=== PATIENT | female | born 1965 | race Caucasian/White ===

== ENCOUNTER 2019-11-28 20:42 | Emergency (ER) | payer BC ==
[~2019-11-28] VITALS: Ht 162.6 cm; Wt 58.1 kg
[2019-11-28 20:48] VITALS: Ht 162.6 cm; Wt 58.1 kg
[2019-11-28 21:40] VITALS: BP 128/77
== END 2019-11-28 21:40 | disposition home or self-care (01) ==
LOC: ED 20:42
DX: S81.811A Laceration without foreign body, right lower leg, initial encounter (principal); X58.XXXA Exposure to other specified factors, initial encounter; Y93.89 Activity, other specified; Y92.89 Other specified places as the place of occurrence of the external cause; Y99.8 Other external cause status
CPT/HCPCS: 90715; J2001